=== PATIENT | female | born 1980 | race Caucasian/White ===

== ENCOUNTER 2023-04-29 23:57 | Inpatient (IN) | payer MEDICAID ==
[~2023-04-29] VITALS: Ht 162.6 cm; Wt 66.7 kg
[2023-04-30] VITALS (9 sets, daily range): BP systolic 101–129; BP diastolic 63–82; TEMP 98–103.1; O2SAT 96–100
[2023-04-30] MEDS ORDERED: CEFTRIAXONE /D5W 50ML IVPB **ER PYXIS IV ONE (00:26)
[2023-04-30] MEDS ORDERED: HYDROMORPHONE 1 MG/1 ML DISP.SYRIN ONE (00:27)
[2023-04-30] MEDS ORDERED: ONDANSETRON 4 MG/2 ML VIAL ONE (00:27)
[2023-04-30] MEDS ORDERED: CEFTRIAXONE 1 G in IV DEXTROSE 5% 50 ML IV ONE (00:30)
[2023-04-30] MEDS ORDERED: ONDANSETRON 4 MG/2 ML VIAL IV ONE (00:30)
[2023-04-30] MEDS ORDERED: IV NORMAL SALINE 1000 ML BAG IV ONE ×2 (00:30)
[2023-04-30] MEDS ORDERED: HYDROMORPHONE 1 MG/1 ML DISP.SYRIN IV ONE (00:30)
[2023-04-30 00:41] LABS: BASOPHILS # (AUTO) 0.1 K/UL (0.0-0.2); BASOPHILS % (AUTO) 0.6 % (0.0-2.0); EOSINOPHILS % (AUTO) 0.4 % (0.0-7.0); HEMOGLOBIN 10.8 g/dL (10.9-14.3); LYMPHOCYTES # (AUTO) 0.8 K/uL (0.8-4.8); LYMPHOCYTES % (AUTO) 8.1 % (20.5-51.5); MEAN CORPUSCULAR HEMOGLOBIN 26.4 uug (24.7-32.8); MEAN CORPUSCULAR HGB CONC 33 g/dL (32.3-35.6); MEAN CORPUSCULAR VOLUME 80.1 fL (75.5-95.3); MONOCYTES # (AUTO) 0.5 K/uL (0.1-1.30); MONOCYTES % (AUTO) 5.5 % (0.0-11.0); NEUTROPHILS # (AUTO) 8.5 K/uL (1.8-8.9); NEUTROPHILS % (AUTO) 85.4 % (38.5-71.5); PLATELET COUNT (AUTO) 208 K/uL (179-408); RED BLOOD CELL COUNT(AUTO) 4.12 MIL/uL (3.63-4.92); WHITE BLOOD COUNT (AUTO) 9.9 K/uL (3.8-11.8)
[2023-04-30 00:46] LABS: DIFFERENTIAL COMMENT 1
[2023-04-30 00:47] LABS: *BILIRUBIN,URIN NEGATIVE (NEGATIVE); *BLOOD, URINE 1+ (NEGATIVE); *CLARITY,URINE SLIGHTLY HAZY (CLEAR); *COLOR,URINE LIGHT YELLOW (YELLOW); *KETONES,URINE NEGATIVE (NEGATIVE); *PROTEIN,URINE NEGATIVE (NEGATIVE); *UROBILINOGEN,URINE 0.2 E.U./dl (NORMAL); LEUKOCYTE ESTERASE ,URINE 2+ (NEGATIVE); NITRITE, URINE NEGATIVE (NEGATIVE); UGLUCOSE NEGATIVE (NEGATIVE)
[2023-04-30 00:50] LABS: CARBON DIOXIDE 22 mmol/L (21-32); CHLORIDE 102 mmol/L (98-107); CREATININE 0.9 mg/dL (0.6-1.3); GLUCOSE 145 mg/dL (74-106); POTASSIUM 3.4 mmol/L (3.5-5.1); SODIUM SERUM 137 mmol/L (136-145); UREA NITROGEN, BLOOD 8 mg/dL (7-18)
[2023-04-30 00:59] LABS: ALANINE AMINOTRANSFERASE 26 U/L (14-59); ALBUMIN 3.8 g/dL (3.4-5.0); ALKALINE PHOSPHATASE 64 U/L (50-136); ASPARTATE AMINOTRANSFERASE 20 U/L (15-37); BILIRUBIN,DIRECT 0.2 mg/dL (0.0-0.2); BILIRUBIN,TOTAL 0.5 mg/dL (0.2-1.0); TOTAL PROTEIN, SERUM 7.6 g/dL (6.4-8.2)
[2023-04-30] MEDS ORDERED: ONDANSETRON 4 MG/2 ML VIAL IV PRN (01:15)
[2023-04-30] MEDS ORDERED: IV NS 1000 ML 1,000 ML IV PRN (01:15)
[2023-04-30] MEDS ORDERED: TEMAZEPAM 15 MG CAPSULE PO PRN (01:15)
[2023-04-30] MEDS ORDERED: MAGNESIUM HYDROXIDE 30 ML LIQUID UDC PO PRN (01:15)
[2023-04-30] MEDS ORDERED: REMEDY ESSENTIAL ZINC PASTE 113 GM TP PRN (01:15)
[2023-04-30 01:21] LABS: WBC,URINE 20-50 /HPF (0-3)
[2023-04-30 01:22] LABS: BACTERIA,URINE MODERATE /HPF (NONE SEEN)
[2023-04-30 01:24] LABS: SQUAMOUS EPITHELIAL CELL,UR FEW /HPF (NONE SEEN)
[2023-04-30 01:25] LABS: IRON, SERUM 16 ug/dL (50-175)
[2023-04-30] MEDS: MORPHINE SULFATE 4 MG/1 ML DISP.SYRIN IV PRN ×2 (04:45→11:55)
[2023-04-30] MEDS: PANTOPRAZOLE SODIUM 40 MG TABLET.DR PO SCH (06:12)
[2023-04-30] MEDS: ACETAMINOPHEN 325 MG TABLET PO PRN ×2 (06:30→13:12)
[2023-04-30] MEDS: HYDROCODONE/APAP 5-325MG TABLET PO PRN ×3 (08:23→20:41)
[2023-04-30] MEDS ORDERED: POTASSIUM CHLORIDE 20 MEQ TAB.PRT.SR PO ONE (11:30)
[2023-04-30] MEDS ORDERED: POTASSIUM CHLORIDE 20 MEQ TAB.PRT.SR PO SCH (12:00)
[2023-04-30] MEDS ORDERED: CEFEPIME HCL 1 G in IV DEXTROSE 5% 50 ML IV SCH (17:00)
[2023-04-30] MEDS ORDERED: VANCOMYCIN IV 1,000 MG in IV DEXTROSE 5% 250 ML IV SCH (18:00)
[2023-04-30] MEDS ORDERED: MEROPENEM 500 MG in IV NORMAL SALINE 50 ML IV SCH ×2 (19:15→20:00)
[2023-04-30] MEDS: IV NS 1000 ML 1,000 ML IV PRN (19:44)
[2023-04-30] MEDS ORDERED: CEFTRIAXONE 1 G in IV DEXTROSE 5% 50 ML IV SCH (21:00)
[2023-05-01 00:40] VITALS: TEMP 100.1
[2023-05-01] MEDS: HYDROCODONE/APAP 5-325MG TABLET PO PRN ×2 (02:07→12:23)
[2023-05-01] MEDS: PANTOPRAZOLE SODIUM 40 MG TABLET.DR PO SCH (06:05)
[2023-05-01 06:54] VITALS: BP 92/67; TEMP 100; O2SAT 96
[2023-05-01 07:11] LABS: BASOPHILS # (AUTO) 0.1 K/UL (0.0-0.2); BASOPHILS % (AUTO) 0.4 % (0.0-2.0); HEMATOCRIT 30.9 % (31.2-41.9); HEMOGLOBIN 10.2 g/dL (10.9-14.3); LYMPHOCYTES # (AUTO) 1.9 K/uL (0.8-4.8); LYMPHOCYTES % (AUTO) 13.2 % (20.5-51.5); MEAN CORPUSCULAR HGB CONC 33 g/dL (32.3-35.6); MEAN CORPUSCULAR VOLUME 81.2 fL (75.5-95.3); MONOCYTES # (AUTO) 1.3 K/uL (0.1-1.30); MONOCYTES % (AUTO) 9.4 % (0.0-11.0); PLATELET COUNT (AUTO) 191 K/uL (179-408); RED CELL DISTRIBUTION WIDTH 14.9 % (12.3-17.7); WHITE BLOOD COUNT (AUTO) 14.3 K/uL (3.8-11.8)
[2023-05-01 07:36] LABS: DIFFERENTIAL COMMENT 1
[2023-05-01] MEDS: IV NS 1000 ML 1,000 ML IV PRN (07:38)
[2023-05-01] MEDS: ACETAMINOPHEN 325 MG TABLET PO PRN (07:44)
[2023-05-01] MEDS: MEROPENEM 0.5 G in IV NORMAL SALINE 50 ML IV SCH ×2 (07:44→16:19)
[2023-05-01] MEDS: MORPHINE SULFATE 4 MG/1 ML DISP.SYRIN IV PRN ×2 (07:54→17:46)
[2023-05-01 08:10] LABS: CALCIUM 8.4 mg/dL (8.5-10.1); CREATININE 0.8 mg/dL (0.6-1.3); POTASSIUM 3.6 mmol/L (3.5-5.1)
[2023-05-01 12:00] VITALS: BP 101/63; TEMP 98.7; O2SAT 98
[2023-05-01 16:00] VITALS: BP 105/72; TEMP 98.6; O2SAT 98
[2023-05-01 22:22] VITALS: BP 110/70; TEMP 98.5
[2023-05-02] MEDS: MEROPENEM 0.5 G in IV NORMAL SALINE 50 ML IV SCH ×3 (00:14→16:25)
[2023-05-02] MEDS: MORPHINE SULFATE 4 MG/1 ML DISP.SYRIN IV PRN ×3 (05:46→20:15)
[2023-05-02] MEDS: PANTOPRAZOLE SODIUM 40 MG TABLET.DR PO SCH (06:00)
[2023-05-02 07:18] LABS: BASOPHILS % (AUTO) 0.3 % (0.0-2.0); EOSINOPHILS % (AUTO) 0.3 % (0.0-7.0); HEMATOCRIT 30.3 % (31.2-41.9); HEMOGLOBIN 10.2 g/dL (10.9-14.3); LYMPHOCYTES # (AUTO) 1.5 K/uL (0.8-4.8); LYMPHOCYTES % (AUTO) 14.4 % (20.5-51.5); MEAN CORPUSCULAR HEMOGLOBIN 26.9 uug (24.7-32.8); MEAN CORPUSCULAR HGB CONC 34 g/dL (32.3-35.6); MONOCYTES # (AUTO) 0.9 K/uL (0.1-1.30); MONOCYTES % (AUTO) 9.3 % (0.0-11.0); NEUTROPHILS # (AUTO) 7.7 K/uL (1.8-8.9); NEUTROPHILS % (AUTO) 75.7 % (38.5-71.5); PLATELET COUNT (AUTO) 212 K/uL (179-408); RED BLOOD CELL COUNT(AUTO) 3.78 MIL/uL (3.63-4.92); RED CELL DISTRIBUTION WIDTH 14.5 % (12.3-17.7); WHITE BLOOD COUNT (AUTO) 10.1 K/uL (3.8-11.8)
[2023-05-02 07:31] LABS: CALCIUM 8.5 mg/dL (8.5-10.1); CREATININE 0.6 mg/dL (0.6-1.3); PHOSPHOROUS 2.4 mg/dL (2.5-4.9); POTASSIUM 3.8 mmol/L (3.5-5.1)
[2023-05-02 07:33] LABS: DIFFERENTIAL COMMENT 1
[2023-05-02] MEDS: ACETAMINOPHEN 325 MG TABLET PO PRN (08:25)
[2023-05-02] MEDS: IV NS 1000 ML 1,000 ML IV PRN ×2 (09:44→21:51)
[2023-05-02 11:50] VITALS: BP 103/67; TEMP 98; O2SAT 99
[2023-05-02] MEDS ORDERED: NEUTRA PHOS PACKET PO ONE (13:30)
[2023-05-02 17:08] VITALS: BP 108/59; TEMP 97.9; O2SAT 98
[2023-05-02 20:00] VITALS: BP 134/89; TEMP 98.2; O2SAT 100
[2023-05-02] MEDS ORDERED: EPOETIN ALFA-EPBX 10,000 UNIT/ML VIAL ONE (20:11)
[2023-05-02] MEDS ORDERED: MORPHINE SULFATE 2 MG/1 ML DISP.SYRIN IV PRN ×2 (22:15→22:45)
[2023-05-03] MEDS: MEROPENEM 0.5 G in IV NORMAL SALINE 50 ML IV SCH ×3 (00:11→15:49)
[2023-05-03 05:53] VITALS: BP 125/75; TEMP 98.2; O2SAT 100
[2023-05-03] MEDS: PANTOPRAZOLE SODIUM 40 MG TABLET.DR PO SCH (06:19)
[2023-05-03 07:08] LABS: BASOPHILS % (AUTO) 0.5 % (0.0-2.0); EOSINOPHILS # (AUTO) 0.1 K/uL (0.0-0.7); EOSINOPHILS % (AUTO) 1.2 % (0.0-7.0); HEMATOCRIT 29.7 % (31.2-41.9); HEMOGLOBIN 9.9 g/dL (10.9-14.3); LYMPHOCYTES # (AUTO) 1.9 K/uL (0.8-4.8); LYMPHOCYTES % (AUTO) 25.1 % (20.5-51.5); MEAN CORPUSCULAR HEMOGLOBIN 26.5 uug (24.7-32.8); MEAN CORPUSCULAR HGB CONC 33 g/dL (32.3-35.6); MEAN CORPUSCULAR VOLUME 79.8 fL (75.5-95.3); MONOCYTES % (AUTO) 13.2 % (0.0-11.0); NEUTROPHILS # (AUTO) 4.6 K/uL (1.8-8.9); PLATELET COUNT (AUTO) 250 K/uL (179-408); RED BLOOD CELL COUNT(AUTO) 3.72 MIL/uL (3.63-4.92); RED CELL DISTRIBUTION WIDTH 15.1 % (12.3-17.7); WHITE BLOOD COUNT (AUTO) 7.7 K/uL (3.8-11.8)
[2023-05-03 07:20] LABS: DIFFERENTIAL COMMENT 1
[2023-05-03 07:30] LABS: CALCIUM 8.6 mg/dL (8.5-10.1); CREATININE 0.6 mg/dL (0.6-1.3); MAGNESIUM 1.8 mg/dL (1.8-2.4); PHOSPHOROUS 3.1 mg/dL (2.5-4.9); POTASSIUM 3.6 mmol/L (3.5-5.1)
[2023-05-03] MEDS ORDERED: MORPHINE SULFATE 4 MG/1 ML DISP.SYRIN IV PRN (08:30)
[2023-05-03] MEDS: HYDROCODONE/APAP 5-325MG TABLET PO PRN ×2 (08:45→17:48)
[2023-05-03] MEDS: IV NS 1000 ML 1,000 ML IV PRN ×2 (08:47→22:51)
[2023-05-03 12:05] VITALS: BP 117/84; TEMP 98; O2SAT 99
[2023-05-03] MEDS ORDERED: levoFLOXacin 500 MG TABLET PO SCH (16:45)
[2023-05-03 20:00] VITALS: BP 115/82; TEMP 97.7; O2SAT 99
[2023-05-04] MEDS: HYDROCODONE/APAP 5-325MG TABLET PO PRN ×2 (00:30→10:52)
[2023-05-04 04:00] VITALS: BP 118/80; TEMP 98.2; O2SAT 98
[2023-05-04] MEDS: PANTOPRAZOLE SODIUM 40 MG TABLET.DR PO SCH (06:14)
[2023-05-04] MEDS ORDERED: LEVO750T46 PO (09:20)
[2023-05-04 11:35] VITALS: BP 127/88; TEMP 97.9; O2SAT 98
== END 2023-05-04 14:40 | disposition home or self-care (01) | DRG 720 ==
LOC: ER 04-30 00:05 → EDBD 04-30 01:35 → MEDSURG3 04-30 01:35
PROVIDERS: ADMIT Internal Medicine; ATTEND Internal Medicine
DX: A41.9 Sepsis, unspecified organism (principal); N10 Acute pyelonephritis; D50.9 Iron deficiency anemia, unspecified; R00.0 Tachycardia, unspecified; R65.20 Severe sepsis without septic shock; R33.9 Retention of urine, unspecified; B96.20 Unspecified Escherichia coli [E. coli] as the cause of diseases classified elsewhere; E83.39 Other disorders of phosphorus metabolism; R53.1 Weakness; Z88.2 Allergy status to sulfonamides; N39.0 Urinary tract infection, site not specified
CPT/HCPCS: 36415; 70030-TC; 71045; 83550; 83605; 83735; 84100; 84484; 85025; 85730; 87040; 93005; A4663; G0378; J0692; J0696; J0885; J1170; J2185; J2270; J2405; J3370; J7040; J7050